=== PATIENT | female | born 1995 | race Caucasian/White ===

== ENCOUNTER 2016-06-30 05:21 | Day surgery (SDC) | payer MEDICAID ==
[2016-06-28 10:01] LABS: BASOPHILS 0.7 % (0-2); EOSINOPHILS 3.3 % (0-7); HEMATOCRIT 44.2 % (36.0-48.0); HEMOGLOBIN 14.9 g/dL (12-16); IMMATURE GRANULOCYTES 0.2 % (0-5); LYMPHOCYTES 48.6 % (15-50); MCH 30.8 pg (26.0-34.0); MCHC 33.7 g/dL (31.0-37.0); MCV 91.5 fL (80.0-100.0); MEAN PLATELET VOLUME 9.5 fL (7.4-10.4); MONOCYTES 7.5 % (2-11); NEUTROPHILS 39.7 % (40-80); RBC 4.83 10x6/uL (4.00-5.40); WBC 5.8 10x3/uL (4.8-10.8)
[2016-06-28 10:05] LABS: CALC OSMOLALITY 276 mosm/kg (275-300); CALCIUM 9.4 mg/dL (8.5-10.1); CARBON DIOXIDE 24.9 mmol/L (21.0-32.0); CHLORIDE - SERUM 105 mmol/L (98-107); CREATININE - SERUM 0.7 mg/dL (0.6-1.3); GLUCOSE 95 mg/dL (74-106); PLATELET COUNT 267 10x3/uL (130-400); POTASSIUM - SERUM 3.9 mmol/L (3.5-5.1); SODIUM 140 mmol/L (136-145); UREA NITROGEN 8 mg/dL (7-18); eGFR NON AFRICAN AMERICAN > 90 mL/min (90-120)
[~2016-06-30 05:21] MED LIST: HYDROCODON-ACE1 EAC7 PO; IBUPROFEN600 MG PO; PERCOCET 5-3251 TAB PO; YASMIN 28 TABLE1 TAB PO
[2016-06-30 07:09] LABS: HCG URINE NEGATIVE (NEGATIVE)
== END 2016-06-30 11:05 | disposition home or self-care (01) ==
LOC: D.OPS 05:21
PROVIDERS: Obstetrics & Gynecology
DX: R10.2 Pelvic and perineal pain (principal); N92.0 Excessive and frequent menstruation with regular cycle; N85.4 Malposition of uterus

== ENCOUNTER 2017-08-15 16:12 | Outpatient (CLI) | payer MEDICAID ==
[2016-06-30 06:46] VITALS: BMI 24.2
== END 2017-08-15 21:28 | disposition home or self-care (01) ==
LOC: D.LDO 16:12
DX: O60.03 Preterm labor without delivery, third trimester (principal); Z3A.31 31 weeks gestation of pregnancy

== ENCOUNTER → 2017-08-25 13:49 | Outpatient (CLI) | payer MEDICAID ==
[2016-06-30 06:46] VITALS: BMI 24.2
[~2017-08-25 13:49] MED LIST changes: +PRENATAL-U CA1 UDCAP PO
== END | disposition home or self-care (01) ==
LOC: D.LDO 13:49
DX: O26.893 Other specified pregnancy related conditions, third trimester (principal); Z3A.33 33 weeks gestation of pregnancy

== ENCOUNTER 2017-08-31 18:44 | Outpatient (CLI) | payer MEDICAID ==
[2016-06-30 06:46] VITALS: BMI 24.2
[~2017-08-31 18:44] MED LIST changes: -PRENATAL-U CA1 UDCAP PO
== END 2017-08-31 20:30 ==
LOC: D.LDO 18:44
DX: O26.893 Other specified pregnancy related conditions, third trimester (principal); Z3A.34 34 weeks gestation of pregnancy

== ENCOUNTER → 2017-09-01 10:58 | Outpatient (CLI) | payer MEDICAID ==
[2016-06-30 06:46] VITALS: BMI 24.2
[~2017-09-01 10:58] MED LIST changes: +PRENATAL-U CA1 UDCAP PO
[2017-09-01 12:10] LABS: BASOPHILS 0.3 % (0-2); EOSINOPHILS 1.4 % (0-7); HEMATOCRIT 31.8 % (36.0-48.0); HEMOGLOBIN 10.8 g/dL (12-16); IMMATURE GRANULOCYTES 0.2 % (0-5); MCH 30.6 pg (26.0-34.0); MCV 90.1 fL (80.0-100.0); MONOCYTES 6.9 % (2-11); NEUTROPHILS 67.2 % (40-80); PLATELET COUNT 263 10x3/uL (130-400); RBC 3.53 10x6/uL (4.00-5.40); RDW 13.9 % (11.5-14.5); WBC 10.5 10x3/uL (4.8-10.8)
[2017-09-01 12:29] LABS: ALBUMIN 2.4 g/dL (3.4-5.0); ALKALINE PHOSPHATASE 296 U/L (46-116); ALT (SGPT) 17 U/L (10-68); BILIRUBIN - DIRECT 0.07 mg/dL (0.00-0.30); BILIRUBIN - INDIRECT 0.16 mg/dL (0.00-1.00); BILIRUBIN - TOTAL 0.23 mg/dL (0.2-1.3); CALC OSMOLALITY 275 mosm/kg (275-300); CALCIUM 8.4 mg/dL (8.5-10.1); CARBON DIOXIDE 20.8 mmol/L (21.0-32.0); CHLORIDE - SERUM 105 mmol/L (98-107); CREATININE - SERUM 0.5 mg/dL (0.6-1.3); GLUCOSE 125 mg/dL (74-106); PROTEIN - SERUM 6.4 g/dL (6.4-8.2); SODIUM 139 mmol/L (136-145); UREA NITROGEN 3 mg/dL (7-18); eGFR NON AFRICAN AMERICAN > 90 mL/min (90-120)
[2017-09-01 12:33] LABS: POTASSIUM - SERUM 2.3 mmol/L (3.5-5.1)
[2017-09-04 22:06] LABS: TOTAL BILE ACIDS 1.8 umol/L (()); URSODEOXYCHOLIC ACID <0.10 umol/L (())
== END | disposition home or self-care (01) ==
LOC: D.LDO 10:58
PROVIDERS: Obstetrics & Gynecology
DX: O26.899 Other specified pregnancy related conditions, unspecified trimester (principal); Z3A.00 Weeks of gestation of pregnancy not specified

== ENCOUNTER 2017-09-02 21:32 | Outpatient (CLI) | payer MEDICAID ==
[2016-06-30 06:46] VITALS: BMI 24.2
[~2017-09-02 21:32] MED LIST changes: -PRENATAL-U CA1 UDCAP PO
[2017-09-02 22:22] LABS: ALBUMIN 2.4 g/dL (3.4-5.0); BILIRUBIN - INDIRECT 0.14 mg/dL (0.00-1.00); BILIRUBIN - TOTAL 0.18 mg/dL (0.2-1.3); PROTEIN - SERUM 6.2 g/dL (6.4-8.2)
[2017-09-02 22:25] LABS: BILIRUBIN - DIRECT 0.04 mg/dL (0.00-0.30)
== END 2017-09-02 22:42 | disposition home or self-care (01) ==
LOC: D.LDO 21:32
PROVIDERS: Obstetrics & Gynecology
DX: O26.893 Other specified pregnancy related conditions, third trimester (principal); Z3A.34 34 weeks gestation of pregnancy

== ENCOUNTER 2017-10-05 04:55 | Inpatient (IN) | payer MEDICAID ==
[~2017-10-05] VITALS: Ht 162.6 cm; Wt 80.7 kg
--- NOTE | ~2017-10-05 | DS ---
PATIENT:SOFÍA DICKSON :89 MEDICAL RECORD: [id number] DISCHARGE SUMMARY ADMISSION DATE: 10/05/17 DISCHARGE DATE: 10/07/17 HOSPITAL COURSE: The patient was admitted on 10/05/2017. A 22-year-old at 39 weeks, admitted for induction of labor per patient wishes. The patient was noted to be A positive, group B strep positive, rubella immune. The patient reported medical history that was noncontributory. PAST SURGICAL HISTORY: Significant for extraction of wisdom teeth and previous laparoscopy as well as a previous dilation and curettage. ALLERGIES: The patient reported allergy to SUPRAX. FAMILY HISTORY: The patient reported no significant family history. SOCIAL HISTORY: Negative times 3. PHYSICAL EXAMINATION: VITAL SIGNS: On initial assessment, vital signs were stable. The patient was normotensive and afebrile. LUNGS: Clear to auscultation. CARDIOVASCULAR: Regular rate and rhythm. PELVIC: Uterus was appropriately sized and nontender. EXTREMITIES: Lower extremities were free of Homans sign, erythema, or swelling. wellbeing was reassuring with a category 1 tracing. ASSESSMENT AND PLAN: 1. At that time, term intrauterine at 39 weeks. 2. Induction of labor per patient wishes. 3. History of group B strep. 4. Multiparous. Plan at that time for Pitocin induction of labor. Penicillin was hung for group B strep. The patient progressed to approximately 4-5 cm and artificial rupture of membranes was performed with clear fluid noted, category 1 tracing was noted at that time. The patient progressed to the second stage of labor and proceeded to have a spontaneous vaginal delivery over an intact perineum. Delivery note is as on the chart. The patient did well overnight on day #0. On the morning of day #1, vital signs were stable. The patient was afebrile. Hemoglobin was found to be appropriate for blood loss. The patient was tolerating general diet, p.o. pain meds, ambulating well and voiding freely. The patient was kept overnight due to the infant's group B strep status. On the morning of day #2, the patient continued to do great. Vital signs were stable, afebrile. Uterus was infraumbilical and nontender with minimal lochia. The patient tolerated voiding trial and was discharged home on day #2 with instructions to follow up in 4 weeks. TRANSINT:[id number] Voice Confirmation ID: [id number] DOCUMENT ID: [id number] DISCHARGE SUMMARY REPORT [id number] SOFÍA DICKSON, HUGO Chun MD at 1259 CC: [id number] DICTATION DATE: 11/12/17 0837 SECURITY SALES CONSULTANT: 11/12/17 1154 [facility] [place] 10/07/17 [place] [id number] [place] [id number]
[2017-10-05] MEDS ORDERED: PRENATAL-U CA1 UDCAP PO (05:45)
[2017-10-05 05:46] VITALS: BP 122/61; Ht 162.6 cm; Wt 80.7 kg
[2017-10-05 06:54] LABS: APPEARANCE HAZY (CLEAR); BACTERIA MODERATE /hpf (NONE SEEN); BILIRUBIN NEGATIVE (NEGATIVE); COLOR YELLOW (YELLOW); GLUCOSE NEGATIVE (NEGATIVE); KETONE SMALL mg/dL (NEGATIVE); MUCUS <1+ /lpf (NONE SEEN); NITRITE NEGATIVE (NEGATIVE); PROTEIN NEGATIVE (NEGATIVE); SPECIFIC GRAVITY 1.015 (1.005-1.020); UROBILINOGEN NORMAL (NORMAL); WHITE CELLS - URINE 0-5 /hpf (0-5)
[2017-10-05 07:12] LABS: HEMATOCRIT 30.9 % (36.0-48.0); MCH 27.9 pg (26.0-34.0); MCHC 32.4 g/dL (31.0-37.0); MCV 86.1 fL (80.0-100.0); MEAN PLATELET VOLUME 10.7 fL (7.4-10.4); RBC 3.59 10x6/uL (4.00-5.40); RDW 14.8 % (11.5-14.5); WBC 12.3 10x3/uL (4.8-10.8)
[2017-10-05 19:54] VITALS: BP 153/91
[2017-10-05 22:46] VITALS: BP 133/74
[2017-10-06 07:35] VITALS: BP 122/74
[2017-10-06 07:35] LABS: RAPID PLASMA REAGIN Non Reactive (Non Reactive)
[2017-10-06 07:49] LABS: BASOPHILS 0.2 % (0-2); EOSINOPHILS 1.7 % (0-7); HEMATOCRIT 29.6 % (36.0-48.0); HEMOGLOBIN 9.4 g/dL (12-16); IMMATURE GRANULOCYTES 0.3 % (0-5); LYMPHOCYTES 32.1 % (15-50); MCH 27.4 pg (26.0-34.0); MCHC 31.8 g/dL (31.0-37.0); MCV 86.3 fL (80.0-100.0); MEAN PLATELET VOLUME 9.8 fL (7.4-10.4); MONOCYTES 5.8 % (2-11); NEUTROPHILS 59.9 % (40-80); PLATELET COUNT 251 10x3/uL (130-400); RBC 3.43 10x6/uL (4.00-5.40); RDW 14.9 % (11.5-14.5); WBC 10.5 10x3/uL (4.8-10.8)
[2017-10-06 12:20] VITALS: BP 124/79
[2017-10-06 19:35] VITALS: BP 125/71
[2017-10-07 07:30] VITALS: BP 130/74
== END 2017-10-07 13:35 | disposition home or self-care (01) | DRG 775 ==
LOC: D.LD 04:55 → D.WS 04:55
PROVIDERS: Obstetrics & Gynecology
PROC: 10E0XZZ Delivery of Products of Conception, External Approach (ICD-10-PCS; principal; 2017-10-05)
PROC: 10907ZC Drainage of Amniotic Fluid, Therapeutic from Products of Conception, Via Natural or Artificial Opening (ICD-10-PCS; 2017-10-05)
PROC: 3E033VJ Introduction of Other Hormone into Peripheral Vein, Percutaneous Approach (ICD-10-PCS; 2017-10-05)
DX: O80 Encounter for full-term uncomplicated delivery (principal); Z3A.39 39 weeks gestation of pregnancy; Z37.0 Single live birth

== ENCOUNTER 2017-12-15 05:20 | Day surgery (SDC) | payer MEDICAID ==
[2017-12-14 11:03] LABS: BASOPHILS 0.5 % (0-2); EOSINOPHILS 2.9 % (0-7); HEMATOCRIT 43.3 % (36.0-48.0); HEMOGLOBIN 14.3 g/dL (12-16); IMMATURE GRANULOCYTES 0.1 % (0-5); LYMPHOCYTES 46.5 % (15-50); MCH 28.2 pg (26.0-34.0); MCV 85.4 fL (80.0-100.0); MEAN PLATELET VOLUME 9.3 fL (7.4-10.4); MONOCYTES 7.3 % (2-11); NEUTROPHILS 42.7 % (40-80); RBC 5.07 10x6/uL (4.00-5.40); RDW 19.1 % (11.5-14.5); WBC 7.3 10x3/uL (4.8-10.8)
[2017-12-14 11:04] LABS: PLATELET COUNT 308 10x3/uL (130-400)
[2017-12-14 11:15] LABS: HCG URINE NEGATIVE (NEGATIVE)
[~2017-12-15] VITALS: Ht 162.6 cm; Wt 68.0 kg
--- NOTE | ~2017-12-15 | OP ---
PATIENT NAME: SOFÍA DICKSON MEDICAL RECORD: [id number] :89 [facility] DATE: SURGEON: DELGADO HARRINGTON MD DATE OF OPERATION: 12/15/2017 PREOPERATIVE DIAGNOSES: Multiparity, patient desires permanent sterility. POSTOPERATIVE DIAGNOSES: Multiparity, patient desires permanent sterility. PROCEDURE: Laparoscopic bilateral salpingectomy. SURGEON: Delgado Harrington MD ESTIMATED BLOOD LOSS: Minimal. ANESTHESIA: General endotracheal. INTRAVENOUS FLUIDS: Per anesthesia record. SPECIMENS: Bilateral fallopian tubes. FINDINGS: Grossly normal-appearing uterus, fallopian tubes, and ovaries. COMPLICATIONS: None apparent. PROCEDURE: The patient was taken to the operating room where general anesthesia was achieved without difficulty. The patient was prepped and draped in normal sterile fashion in the dorsal lithotomy position in the [facility]. Following prep and drape, the patient was catheterized using a Mckenzie catheter. Attention was then turned to the umbilicus where a 5-mm incision was made in the inferior aspect and the 5-mm bladeless trocar was used to enter the intraperitoneal space under direct visualization of the laparoscope. The introducer was removed. The patient was insufflated and the opening pressure was found to be less than 10 mmHg. Intraperitoneal placement was confirmed upon induction of the laparoscope. Attention was then turned to the left and right lower quadrants where 2 more 5-mm ports were placed with the 5-mm bladeless trocar under direct visualization of the laparoscope. Attention was then turned to the uterus. The uterine manipulator had been placed after the prep and the bilateral fallopian tubes were identified to their fimbriated end. At this point, the Kleppinger was then used to cauterize the mesosalpinx bilaterally starting at the most distal end to near where the origin of the tube at the uterus was identified. Following the Kleppinger cauterization of the mesosalpinx, the tube was then excised and removed. The stumps of the fallopian tubes were then cauterized with the Gyrus bipolar cautery with good hemostasis noted. Following removal of bilateral fallopian tubes, the patient was partially desufflated and no bleeding was noted from the surgical sites. The patient was desufflated and the port removed. The skin was repaired with 3-0 Monocryl in an interrupted fashion. Uterine manipulator was then removed and the Mckenzie catheter removed as well. The patient tolerated the procedure well, was transported to postanesthesia recovery stable without incident. TRANSINT:[id number] Voice Confirmation ID: [id number] DOCUMENT ID: [id number] OPERATIVE REPORT [id number] SOFÍA DICKSON, DELGADO Chun MD at 0902 CC: [id number] DICTATION DATE: 12/23/17 0414 FISH HATCHERY MANAGER: 12/23/17 0755 [facility] 12/15/17 [place] [id number] [place] [address]
[~2017-12-15 05:20] MED LIST changes: +PRENATAL-U CA1 UDCAP PO; +ZOLOFT50 MG PO
[2017-12-15 06:08] VITALS: BP 111/75; BMI 25.8
[2017-12-15 06:20] LABS: HCG URINE NEGATIVE (NEGATIVE)
[2017-12-15 06:21] VITALS: Ht 162.6 cm; Wt 68.0 kg
== END 2017-12-15 11:25 | disposition home or self-care (01) ==
LOC: D.OPS 05:20 → D.PAN 08:00 → D.OPS 11:25
PROVIDERS: Obstetrics & Gynecology
DX: Z30.2 Encounter for sterilization (principal); Z01.812 Encounter for preprocedural laboratory examination

== ENCOUNTER → 2020-05-08 05:45 | Day surgery (SDC) | payer BC, MEDICAID ==
[2020-05-05 16:19] LABS: BASOPHILS 0.5 % (0-2); EOSINOPHILS 3.1 % (0-7); HEMATOCRIT 39.2 % (36.0-48.0); HEMOGLOBIN 12.5 g/dL (12-16); IMMATURE GRANULOCYTES 0.2 % (0-5); LYMPHOCYTE ABS# 3.32 10x3/uL (1.18-3.74); LYMPHOCYTES 40.8 % (15-50); MCH 26.3 pg (26.0-34.0); MCHC 31.9 g/dL (31.0-37.0); MCV 82.4 fL (80.0-100.0); MEAN PLATELET VOLUME 8.6 fL (7.4-10.4); MONOCYTES 9.1 % (2-11); NEUTROPHIL ABS# 3.76 10x3/uL (1.56-6.13); NEUTROPHILS 46.3 % (40-80); PLATELET COUNT 334 10x3/uL (130-400); RBC 4.76 10x6/uL (4.00-5.40); RDW 17.5 % (11.5-14.5); WBC 8.1 10x3/uL (4.8-10.8)
[2020-05-05 16:35] LABS: SARS-CoV-2 ANTIGEN NEGATIVE- SARS-COV-2 (NEGATIVE)
[~2020-05-08] VITALS: Ht 162.6 cm; Wt 79.8 kg
[~2020-05-08 05:45] MED LIST changes: +PEPCID AC20 MG PO; +THEREMS-M1 TAB PO; +ZYRTEC10 MG PO
[2020-05-08 06:38] VITALS: BP 114/74; Ht 162.6 cm; Wt 79.8 kg
[2020-05-08 06:49] LABS: HCG URINE NEGATIVE (NEGATIVE)
--- NOTE | 2020-05-08 16:18 | NUR ---
IV D/C'D WITH CANNULA INTACT, PRESSURE HELD AND DRESSING PLACED. DISCHARGE INSTRUCTIONS GIVEN AND PT VERBALIZED AN UNDERSTANDING.
--- NOTE | 2020-05-18 06:58 | OP ---
PATIENT NAME: SOFÍA DICKSON MEDICAL RECORD: [id number] :89 [facility] AD[facility] DATE: SURGEON: DELGADO HARRINGTON MD DATE OF OPERATION: 05/08/2020 PREOPERATIVE DIAGNOSIS: Menorrhagia refractory to medical treatment. POSTOPERATIVE DIAGNOSIS: Menorrhagia refractory to medical treatment. PROCEDURE: Hysteroscopy and NovaSure endometrial ablation. SURGEON: Delgado Harrington. ANESTHESIA: General endotracheal. INTRAVENOUS FLUIDS: Per anesthesia record. HYSTEROSCOPIC FLUID LOSS: Less than 100 mL. ESTIMATED BLOOD LOSS: Minimal. COMPLICATIONS: None apparent. SPECIMENS: None. FINDINGS: 1. Grossly normal-appearing external genitalia and cervix. 2. Proliferative-appearing endometrium. PROCEDURE IN DETAIL: The patient was taken to the operating room where general anesthesia was achieved without any difficulty. The patient was prepped and draped in normal sterile fashion in dorsal lithotomy position in the [facility]. Bladder was drained of approximately 100 mL of clear straw-colored urine. At this point, a Graves speculum was placed into the vagina and the cervix was grasped at the anterior lip with a single-tooth tenaculum. The uterus sounded to approximately 8 cm. The 3-mm hysteroscope was then used to survey the endometrial canal. The patient was then dilated to approximately 8-mm at which point the NovaSure device was calibrated, measured and placed into the uterus. Vacuum check pretest was passed times 2 and a complete burn cycle was performed. The NovaSure was then unlocked and removed via the bow and arrow method. A repeat hysteroscope was performed that showed good blanching to the fundus. The tenaculum was removed. The patient tolerated the procedure well and was transferred to postanesthesia recovery stable without incident. TRANSINT:[id number] Voice Confirmation ID: [id number] DOCUMENT ID: [id number] DELGADO HARRINGTON MD at 0658 CC: [id number] DICTATION DATE: 05/15/20 1434 ESTIMATING MANAGER: 05/15/[address] [facility] 05/08/20 [place] [id number] [place] [address]
== END | disposition home or self-care (01) ==
LOC: D.OPS 05:45
PROVIDERS: ATTEND Obstetrics & Gynecology
DX: N92.0 Excessive and frequent menstruation with regular cycle (principal)